=== PATIENT | female | born 1990 | race Caucasian/White ===

== ENCOUNTER 2019-12-02 20:25 | Emergency (ER) | payer SELFPAY ==
[~2019-12-02] VITALS: Ht 12.7 cm; Wt 80.5 kg
[2019-12-02 20:32] VITALS: TEMP 98.3
[2019-12-02 21:06] LABS: BASO # 0.1 (0.0-0.2); BASO % 0.7 % (0.0-2.0); EOS # 0.3 (0.0-0.7); EOS % 2.8 % (0-4.0); GRAN # 5.1 (1.4-6.5); GRAN % 57.2 % (42.2-75.2); HEMATOCRIT 40.5 % (37.0-47.0); HEMOGLOBIN 13.3 g/dl (12.5-16.0); LYMPH # 2.9 (1.2-3.4); LYMPH % 32.1 % (20.0-51.0); MEAN CELL VOLUME 93 fl (80.0-100.0); MEAN CORPUSCULAR HEMOGLOBIN 30 pg (27.0-31.0); MEAN CORPUSCULAR HGB CONC 33 g/dl (33.0-37.0); MEAN PLATELET VOLUME 9.9 fl (7.4-10.4); MONO # 0.6 (0.1-0.6); PLATELET COUNT 294 K/mm3 (130-400); RED BLOOD COUNT 4.38 M/mm3 (4.10-5.30); REDCELL DISTRIBUTION WIDTH-CV 12.6 % (11.5-14.5)
[2019-12-02 21:08] LABS: PROTHROMBIN TIME 11.3 SECONDS (9.7-12.8)
[2019-12-02 21:13] LABS: ALANINE AMINOTRANSFERASE 14 U/L (4-34); ALBUMIN 4.1 gm/dL (3.5-5.0); ALKALINE PHOSPHATASE 62 U/L (50-136); ANION GAP 7 mmol/L (7-16); AST,SGOT 17 U/L (15-37); BILIRUBIN,TOTAL 1.5 mg/dL (0.0-1.0); BLOOD UREA NITROGEN 16 mg/dL (7-17); CALCIUM 9.4 mg/dL (8.4-10.2); CARBON DIOXIDE 28 mmol/L (22-30); CHLORIDE 103 mmol/L (98-107); CREATINE KINASE 72 U/L (30-135); CREATININE, serum 0.78 (0.52-1.25); GLUCOSE 89 mg/dL (74-106); LIPASE 67 U/L (23-300); SODIUM 138 mmol/L (137-145); TOTAL PROTEIN 7.5 gm/dL (6.4-8.2)
[2019-12-02 21:25] LABS: TROPONIN-I < 0.012 ng/mL (0.000-0.035)
[2019-12-02 21:38] LABS: D-DIMER < 200.00 ng/mLDDu (200-230)
[2019-12-02 22:50] VITALS: BP 132/92; PULSE 99
== END 2019-12-02 22:52 | disposition home or self-care (01) ==
LOC: COL.ER 20:25
PROVIDERS: Emergency Medicine
DX: R07.89 Other chest pain (principal); R60.0 Localized edema; F20.9 Schizophrenia, unspecified; F31.9 Bipolar disorder, unspecified; F17.210 Nicotine dependence, cigarettes, uncomplicated; Z98.51 Tubal ligation status
CPT/HCPCS: J2060; Q9967